=== PATIENT | female | born 1985 | race Hispanic/Latino ===

== ENCOUNTER 2018-10-11 09:08 | Emergency (ER) | payer OTHER ==
[2018-10-11 09:45] LABS: APPEARANCE,URINE Clear (CLEAR); BILIRUBIN,URINE Negative (NEGATIVE); COLOR,URINE Yellow (YELLOW); GLUCOSE, URINE (UA) Negative (NEGATIVE); KETONES,URINE Negative (NEGATIVE); LEUKOCYTE ESTERASE ,URINE Small (NEGATIVE); NITRATE,URINE Negative (NEGATIVE); OCCULT BLOOD,URINE Large (NEGATIVE); PH,URINE >=9.0 (5.0-8.0); PROTEIN,URINE POS 1+ mg/dL (NEGATIVE)
[2018-10-11 09:47] LABS: HCG,QUAL RESULT NEGATIVE (NEGATIVE)
[2018-10-11] MEDS ORDERED: ONDANSETRON HCL 4 MG/2 ML VIAL ONE (09:53)
[2018-10-11] MEDS ORDERED: SODIUM CHLORIDE 0.9% 1000ML 1,000 ML IV ONE (09:53)
[2018-10-11 09:56] LABS: BACTERIA,URINE Rare /HPF (None Seen); RBC,URINE 0-1 /HPF (0-1); SQUAMOUS EPITHELIAL CELL,UR Few /HPF (0-2)
[2018-10-11 10:05] LABS: CREATININE 0.7 mg/dL (0.5-1.5); POTASSIUM 3.7 mmol/L (3.5-5.1)
[2018-10-11 10:08] LABS: BASOPHILS % (AUTO) 0.2 % (0.0-5.0); EOSINOPHILS % (AUTO) 0.3 % (0.0-8.0); HEMATOCRIT 35.2 % (36-48); LYMPHOCYTES % (AUTO) 6.8 % (21.0-51.0); MEAN CORPUSCULAR HEMOGLOBIN 21.9 pg (27.0-33.0); MEAN CORPUSCULAR HGB CONC 31.7 g/dL (32.0-36.0); MONOCYTES % (AUTO) 5.4 % (3.0-13.0); NEUTROPHILS % (AUTO) 87.3 % (40.0-77.0); PLATELET COUNT (AUTO) 236 K/uL (130-400); RED BLOOD CELL COUNT(AUTO) 5.11 MIL/uL (4.00-5.50); WHITE BLOOD COUNT (AUTO) 6.1 K/uL (4.8-10.8)
[2018-10-11 10:10] LABS: ALBUMIN 3.3 g/dL (3.5-5.0); BILIRUBIN,TOTAL 0.8 mg/dL (0.2-1.0); TOTAL PROTEIN, SERUM 7.9 g/dL (6.0-8.3)
[2018-10-11] MEDS ORDERED: FAMOTIDINE/PF 20 MG/2 ML VIAL IV ONE (10:38)
== END 2018-10-11 11:35 | disposition home or self-care (01) ==
LOC: EDH 09:08
DX: K52.9 Noninfective gastroenteritis and colitis, unspecified (principal)
CPT/HCPCS: 36415; 74176; 80053; 81001; 81025; 83690; 85025; 96361; 96374; 96375; 99285; J2405; J3490; J7030

== ENCOUNTER 2022-08-16 18:10 | Emergency (ER) | payer OTHER ==
[~2022-08-16] VITALS: Ht 152.4 cm; Wt 81.6 kg
[2022-08-16 18:14] VITALS: BP 140/86
[2022-08-16] MEDS ORDERED: KETOROLAC 60 MG VIAL (30MG/ML) IM ONE (20:00)
[2022-08-16] MEDS ORDERED: IBUP-2070 PO (21:34)
[2022-08-16] MEDS ORDERED: ACET-2079 PO (21:34)
[2022-08-16] MEDS ORDERED: METH4TAB3 PO (21:34)
[2022-08-16] MEDS ORDERED: CYCL5TAB PO (21:34)
== END 2022-08-16 21:46 | disposition home or self-care (01) ==
LOC: EDH 18:10
DX: M79.621 Pain in right upper arm (principal); M77.9 Enthesopathy, unspecified
CPT/HCPCS: 99283; 73060; 96372; J1885

== ENCOUNTER 2025-01-11 19:12 | Emergency (ER) | payer SELFPAY ==
[~2025-01-11] VITALS: Ht 160 cm; Wt 83.5 kg
[~2025-01-11 19:12] MED LIST: ACET-2079 PO; CYCL5TAB3 PO; IBUP-1492 PO; METH4TAB3 PO
[2025-01-11] MEDS ORDERED: IBUP-1492 PO (19:43)
[2025-01-11] MEDS ORDERED: CYCL-309 PO (19:43)
--- NOTE | 2025-01-11 19:45 | ERN ---
ED Note History of Present Illness Stated Complaint: C/O PAIN TO LEFT SHOULDER RADIATING TO LEFT ARM Chief Complaint: Shoulder Injury/Pain Time Seen by MD: 19:20 Dictation: 39-YEAR-OLD FEMALE PRESENTS TO ER COMPLAINTS OF LEFT SHOULDER PAIN X2 MONTHS. 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 DENIES CHEST PAIN SHORTNESS OF BREATH. Allergies: Coded Allergies: No Known Allergies (Unverified Allergy, Unknown, 10/11/18) Home Meds Active Scripts Ibuprofen (Ibuprofen) 600 Mg Tablet, 600 MG PO Q6H PRN for PAIN, #15 TAB Prov:MADDISON REYES NP 01/11/25 Cyclobenzaprine HCl (Cyclobenzaprine HCl) 10 Mg Tablet, 1 TAB PO HS for muscle spasms, #10 TAB 0 Refills Prov:MADDISON REYES NP 01/11/25 Methylprednisolone (Medrol) 4 Mg Tab.ds.pk, 4 MG PO AD for 5 Days, #1 PACK Prov:IZZY MORALES 08/16/22 Ibuprofen (Ibuprofen) 600 Mg Tablet, 15 MG PO Q6H PRN for PAIN, #15 TAB Prov:IZZY MORALES 08/16/22 Cyclobenzaprine HCl (Cyclobenzaprine HCl) 5 Mg Tablet, 5 MG PO DAILYDINNER for 5 Days, #5 TAB Prov:IZZY MORALES 08/16/22 Acetaminophen with Codeine (Acetaminophen-Cod #3 Tablet) 1 Each Tablet, 1 TAB PO Q4H PRN for tendonitis, #6 TAB Prov:IZZY MORALES 08/16/22 Past Medical History Past Medical History: No Pertinent History Surgical History: LMP: Dec 24, 2024 Review of System Dictation CONSTITUTIONAL: NEGATIVE FOR FEVER,CHILLS, AND WEIGHT LOSS EYES: NEGATIVE FOR INJURY, PAIN,REDNESS, AND DISCHARGE ENT: NEGATIVE FOR INJURY,PAIN OR SWELLING CARDIOVASCULAR: NEGATIVE FOR CHEST PAIN, PALPITATIONS, AND EDEMA RESPIRATORY: NEGATIVE FOR SHORTNESS OF BREATH, COUGH, WHEEZING, AND PLEURITIC CHEST PAIN ABDOMEN/GI: NEGATIVE FOR ABDOMINAL PAIN, NAUSEA, VOMITING, DIARRHEA, AND CONSTIPATION BACK: NEGATIVE FOR INJURY AND PAIN : NEGATIVE FOR INJURY, BLEEDING AND DISCHARGE MS/EXTREMITY: LEFT SHOULDER PAIN SKIN: NEGATIVE FOR RASH, AND DISCOLORATION NEURO: NEGATIVE FOR HEADACHE, WEAKNESS, NUMBNESS, TINGLING, AND SEIZURE PSYCH: NEGATIVE FOR SUICIDE IDEATION, HOMICIDAL IDEATION, AND HALLUCINATIONS ALLERGY/IMMUNOLOGY: NEGATIVE FOR HIVES, RASH, AND ALLERGIES Initial Vital Sign VS Vital Signs Date Time Temp Pulse Resp B/P (MAP) Pulse Ox O2 Delivery O2 Flow Rate FiO2 01/11/25 19:15 98.1 102 20 124/79 98 Room Air 01/11/25 20:12 0 21 Physical Exam Dictation GENERAL: AWAKE, ALERT, NAD HEAD/FACE: NORMOCEPHALIC, ATRAUMATIC EYES: PERRL, EOMI, VISION AT BASELINE ENT: ORAL CAVITY CLEAR, TMS CLEAR, NO SIGNS OF INFECTION NECK: TRACHEA MIDLINE, SUPPLE, NO NUCHAL RIGIDITY CARDIOVASCULAR: RRR, NORMAL S1/S2, NO MRGS, NO JVD RESPIRATORY: CTAB, NO RESPIRATORY DISTRESS, NO RALES OR WHEEZES ABDOMEN: SOFT, NON-TENDER, NON-DISTENDED, NORMAL BOWEL SOUNDS, NO GUARDING OR REBOUND. SKIN: WARM, DRY, NORMAL TURGOR, NO RASH MS/EXTREMITY: PULSES EQUAL, NO CYANOSIS, NEUROVASCULAR INTACT, PAIN TO LEFT ARM WITH RANGE OF MOTION. PAIN STARTS AT LEFT SHOULDER JOINT DOWN TO LEFT HUMERUS. NEURO: COAX4, GCS 15, STRENGTH 5/5, CN 2-12 INTACT, NORMAL CEREBELLAR EXAM, NORMAL GAIT, PSYCH: NORMAL BEHAVIOR, MOOD, AND AFFECT NORMAL ED Course ED Course Orders Procedure Category Date Status Time ,Urine Test LAB 01/11/25 Logged 19:29 Ketorolac PHA 01/11/25 In Process Tromethamine 30mg/Ml 19:30 Current Medications Medications (Trade) Dose Ordered Sig/Ashley Route PRN Reason Start Time Stop Time Status Last Admin Dose Admin Ketorolac Tromethamine (toRADol) 30 mg ONCE IM 01/11/25 19:30 01/11/25 23:59 Vital Signs Date Time Temp Pulse Resp B/P (MAP) Pulse Ox O2 Delivery O2 Flow Rate FiO2 01/11/25 20:12 98.1 102 20 124/79 98 Room Air* 0 21 01/11/25 19:15 98.1 102 20 124/79 98 Room Air Medical Decision Making MDM MDM: DIFFERENTIAL DIAGNOSIS: SHOULDER STRAIN, SHOULDER SPRAIN, MUSCLE SPASM RATIONALE: TESTS CONSIDERED AND ORDERED SECONDARY TO SHARED DECISION MAKING INCLUDE: LABS, ECG AND RADIOLOGY PREVIOUS OUTSIDE RECORDS REVIEWED: OLD ER VISITS. RISK OF COMPLICATION AND/OR MORBIDITY OR MORTALITY OF PATIENT MANAGEMENT: NONE MEDICATIONS-PER MEDICATION RECONCILIATION NEED FOR HOSPITALIZATION: PATIENT DOES NOT MEET CRITERIA FOR HOSPITALIZATION. NEED FOR EMERGENCY MAJOR/MINOR SURGERY: NO THERE ARE NO SOCIAL CONCERNS WITH THIS PATIENT. PRESCRIPTION DRUG MANAGEMENT PRESCRIPTIONS WILL INCLUDE SYMPTOMATIC CARE PATIENT'S PRIOR EXTERNAL MEDICAL RECORDS FROM OTHER ER VISITS WERE REVIEWED BY ME INDICATED. PRIOR TESTING AND RESULTS FROM PREVIOUS VISITS WERE REVIEWED. PRIOR TESTS WERE TAKEN INTO ACCOUNT WITH MEDICAL DECISION MAKING AND RESOURCE UTILIZATION, INDEPENDENT HISTORIAN/HISTORIANS WERE USED TO OBTAIN COMPLETE MEDICAL HISTORY. I INDEPENDENTLY INTERPRETED THE TEST THAT WERE PERFORMED, RESULTS WERE REVIEWED BY ME AND CONSIDERED FINDINGS ON RADIOLOGY IF ORDERED. PATIENT VSS, NAD, NONTOXIC, STABLE FOR DISCHARGE. PT GIVEN DISCHARGE INSTRUCTIONS IN LAYMAN TERMS AND UNDERSTOOD, ALL QUESTIONS ANSWERED. PT WILL FOLLOW UP WITH PCP AND RETURN TO THE ER IF WORSE. DX & DISP Disposition: Discharge Departure Impression: Primary Impression: Muscle spasm Additional Impression: Left shoulder strain Condition: Stable Scripts Ibuprofen (Ibuprofen) 600 Mg Tablet 600 MG PO Q6H PRN for PAIN, #15 TAB Prov: MADDISON REYES NP 01/11/25 Cyclobenzaprine HCl (Cyclobenzaprine HCl) 10 Mg Tablet 1 TAB PO HS for muscle spasms, #10 TAB 0 Refills Prov: MADDISON REYES NP 01/11/25 Additional Instructions: FOLLOW-UP WITH YOUR PCP IN 24-72 HOURS AND IN THE EVENT IF SYMPTOMS WORSEN OR AN EMERGENCY OVERNIGHT REPORT TO THE ED IMMEDIATELY Referrals: SELF,REFERRAL (PCP) MADDISON REYES NP Jan 11, 2025 19:45
--- NOTE | 2025-01-11 20:34 | NUR ---
PT STATES SHE IS POSITIVE SHE IS NOT , AND IS OK TO TAKE PAIN MED
[2025-01-11 20:38] VITALS: BP 129/72; PULSE 91; RESP 20; TEMP 98.1; O2SAT 98
== END 2025-01-11 20:39 | disposition home or self-care (01) ==
LOC: EDH 19:12
DX: S46.912A Strain of unspecified muscle, fascia and tendon at shoulder and upper arm level, left arm, initial encounter (principal); M62.838 Other muscle spasm; X50.0XXA Overexertion from strenuous movement or load, initial encounter; X50.9XXA Other and unspecified overexertion or strenuous movements or postures, initial encounter; Y93.89 Activity, other specified; Y92.89 Other specified places as the place of occurrence of the external cause; Y99.8 Other external cause status
CPT/HCPCS: 99283; 96372; J1885

== ENCOUNTER 2025-02-10 19:02 | Emergency (ER) | payer SELFPAY ==
[~2025-02-10] VITALS: Ht 160 cm; Wt 83.0 kg
[~2025-02-10 19:02] MED LIST changes: +CYCL-309 PO
[2025-02-10 19:24] VITALS: BP 146/67; PULSE 103; RESP 20; TEMP 98.6; O2SAT 98
--- NOTE | 2025-02-10 20:32 | ERN ---
General Chief Complaint: Knee Injury/Swelling Stated Complaint: FALL, LEFT KNEE PAIN Time Seen by MD: 19:05 Time Seen by Midlevel: 19:05 Source: patient History of Present Illness Initial Comments 39-year-old female presenting to the ER after she sustained a mechanical ground level fall. Patient states she fell onto her left knee. Allergies: Coded Allergies: No Known Allergies (Unverified Allergy, Unknown, 10/11/18) Home Meds Active Scripts Ibuprofen (Ibuprofen) 600 Mg Tablet, 600 MG PO Q6H PRN for PAIN, #15 TAB Prov:MADDISON REYES NP 01/11/25 Cyclobenzaprine HCl (Cyclobenzaprine HCl) 10 Mg Tablet, 1 TAB PO HS for muscle spasms, #10 TAB 0 Refills Prov:MADDISON REYES NP 01/11/25 Methylprednisolone (Medrol) 4 Mg Tab.ds.pk, 4 MG PO AD for 5 Days, #1 PACK Prov:IZZY MORALES 08/16/22 Ibuprofen (Ibuprofen) 600 Mg Tablet, 15 MG PO Q6H PRN for PAIN, #15 TAB Prov:IZZY MORALES 08/16/22 Cyclobenzaprine HCl (Cyclobenzaprine HCl) 5 Mg Tablet, 5 MG PO DAILYDINNER for 5 Days, #5 TAB Prov:IZZY MORALES 08/16/22 Acetaminophen with Codeine (Acetaminophen-Cod #3 Tablet) 1 Each Tablet, 1 TAB PO Q4H PRN for tendonitis, #6 TAB Prov:IZZY MORALES 08/16/22 Past Medical History Past Medical History: No Pertinent History Past Surgical History: Female( History) LMP: Jan 24, 2025 ROS Dictation CONSTITUTIONAL: Negative except for HPI HEAD/FACE: Negative except for HPI EENT: Negative except for HPI RESPIRATORY: Negative except for HPI GASTROINTESTINAL/ABDOMINAL: Negative except for HPI GENITOURINARY: Negative except for HPI MUSCULOSKELETAL: Negative except for HPI INTEGUMENTARY: Negative except for HPI NEUROLOGICAL/PSYCH: Negative except for HPI HEMATOLOGIC/LYMPHATIC: Negative except for HPI All Systems Negative, Except as noted above. 13 point review of systems assessed and all negative except for above. Physical Exam Physical Exam Dictation Vital Signs reviewed General Appearance: Alert, oriented x 3, no acute distress, well developed, nourished. Head and Face: non-traumatic. Eyes: PERRL, pink conjunctivas, eyelid no trauma, anterior chamber with arcus senilis. Ears: Pinnas intact and no signs of trauma or erythema ear canals clear and no discharge TM no erythema Nose: No discharge, no bleeding. Oropharynx: Mouth normal, tongue pink, pharynx clear,no erythema, tonsils no exudates, no abscesses noted, mucous membrane moist Neck: Supple, non-tender, no thyromegaly, no masses, no JVD, no bruits Breast:Deferred Chest:No tenderness, no crepitus, no paradoxical movement, no retractions Lungs:Clear, well-ventilated, symmetric, no rales, no wheezing, no rhonchi, no stridor, good breath sounds bilaterally Heart: Regular rate, regular rhythm, no murmur, no gallops Vascular: no peripheral edema, Abdomen: Soft, positive bowel sounds, nondistended, no guarding, nontender, no rebound, no masses no hepatomegaly, no splenomegaly, no Torres's sign, no hernias. Rectal: Deferred Genital: Deferred Neurological: Normal speech, motor function intact, sensory function intact Musculoskeletal: Neck nontender, full range of motion, back nontender, full range of motion, Extremities: nontender, full range of motion Skin: Color pink, dry, no turgor, no rash, no lacerations, superficial abrasion to the left knee Lymphatic: Deferred MDM MDM: Differential diagnosis: Fall, contusion, dislocation There are no social concerns with this patient. Prescription drug management Prescriptions will include: None Medical management and examination interpretation discussions were had by me with other qualified healthcare professionals as indicated for the patient's care. ED Course Orders Procedure Category Date Status Time Knee 3vws Lt RAD 02/10/25 Taken 19:07 Vital Signs Date Time Temp Pulse Resp B/P (MAP) Pulse Ox O2 Delivery O2 Flow Rate FiO2 02/10/25 19:24 98.6 103 20 146/67 98 Room Air* 0 21 02/10/25 19:03 98.8 110 20 121/86 100 Room Air DX & DISP Disposition: Discharge Departure Impression: Primary Impression: Contusion of left knee Condition: Stable Additional Instructions: Your x-ray does not show any evidence an acute fracture or dislocation. Follow up with your primary care doctor in 2-3 days for repeat evaluation. You may take Tylenol and Motrin as needed pain Referrals: SELF,REFERRAL (PCP) Time of Disposition: 20:31 I have reviewed the case, and I agree with, Diagnosis and Plan I performed the substantive portion of the visit. I have reviewed and personally made and approve the management plan that is documented in the note by myself or the HOLLI. I acknowledge for responsibility for the patient's management plan. TRINIDAD GAMINO Feb 10, 2025 20:32
--- NOTE | 2025-02-10 20:36 | NUR ---
PER ED ELL TEACHER INSTRUCTION, EDUCATED PT ON KNEE IMMOBILIZER USE AND APPLIED KNEE IMMOBILIZER.
--- NOTE | 2025-02-10 20:58 | HMCIMG ---
EXAM: Left knee radiograph 3 view HISTORY: Fall COMPARISON: None TECHNIQUE: AP, lateral and oblique view of the knee FINDINGS: No acute fracture or dislocation. No bony abnormalities. Joint spaces are intact. No soft tissue swelling or effusions. IMPRESSION: No abnormalities seen. /Leonard
== END 2025-02-10 20:48 | disposition home or self-care (01) ==
LOC: EDH 19:02
DX: S80.02XA Contusion of left knee, initial encounter (principal); W18.39XA Other fall on same level, initial encounter; Y93.89 Activity, other specified; Y92.89 Other specified places as the place of occurrence of the external cause; Y99.8 Other external cause status
CPT/HCPCS: 73562; 99284